=== PATIENT | male | born 1950 | race Caucasian/White ===

== ENCOUNTER 2017-04-10 12:59 | Day surgery (SDC) | payer OTHER, BC ==
[2017-04-09 12:14] VITALS: BMI 29.2
[2017-04-10] MEDS ORDERED: LIDOCAINE 1%/EPI 1:100000 (20 ML MULTI DOSE VIAL) ONE (15:14)
[2017-04-10] MEDS ORDERED: PROPOFOL 20 ML ONE ×3 (15:34)
[2017-04-10] MEDS ORDERED: MIDAZOLAM HCL 2 MG/2 ML SINGLE DOSE VIAL ONE (15:37)
[2017-04-10] MEDS ORDERED: ONDANSETRON 4 MG/2 ML VIAL IVPUSH PRN (16:14)
[2017-04-10] MEDS ORDERED: oxyCODONE HCL 5 MG TABLET PO PRN ×3 (16:14→16:45)
[2017-04-10] MEDS ORDERED: ACETAMINOPHEN 325 MG TABLET (FP) PO PRN (16:14)
[2017-04-10] MEDS ORDERED: LACTATED RINGERS SOLUTION 1,000 ML IV SCH ×2 (16:15→16:45)
[2017-04-10] MEDS ORDERED: BACITRACIN 15 GM TUBE TOPICAL OINTMENT ONE (16:15)
[2017-04-10] MEDS ORDERED: ONDANSETRON 4 MG/2 ML VIAL IVPB PRN (16:45)
--- NOTE | 2017-04-10 16:48 | OP ---
Operative Note - Note: Operative Date: 04/10/17 Pre-Operative Diagnosis: foreign body right hand Operation: foreign body removal right hand Post-Operative Diagnosis: Same as Pre-op Anesthesia: MAC Specimens Removed: wood Drains & Tubes with Location: wilfred right hand Operative Report Dictated: Yes
[2017-04-10 16:56] VITALS: BP 134/74; PULSE 78; TEMP 97.8
--- NOTE | 2017-04-10 17:50 | OP ---
DATE OF OPERATION: 04/10/2017 TITLE OF PROCEDURE: Right hand exploration of penetrating wound with removal of foreign body from thenar muscle. ATTENDING SURGEON: Ayush Quintana MD ASSISTANTS: None. ANESTHESIA: Monitored sedation with a total of 6 mL 2% lidocaine plain local field block. The patient is marked in the holding area, awake and aware of possible incisions, resulting scars. He is then brought to the operating room, placed in supine position. Position carefully checked by surgical and anesthesia teams. He is prepped and draped in standard surgical fashion. The hand is elevated. Esmarch exsanguinated. A tourniquet is inflated to 225 mm of pressure. Total tourniquet time for this case is 10 minutes. A timeout is called. Patient, procedure, site, and side are verified. The existing sutures in the wound which were used only to previously partially close the wound were removed with skin hooks. The skin edges are retracted, and the wooden foreign body is immediately identified entering into the thenar musculature. It is removed from the musculature intact. This piece corresponds with the dimensions and size of the piece identified on the sonogram. The wound is thoroughly explored with loupe magnification for any additional foreign bodies. None are identified. Additionally, the wound is copiously irrigated with a liter of normal saline. At this point, a single tacking 4-0 nylon suture is used, and a Melissa drain is placed into the wound, secured with a 4-0 nylon. Tourniquet is released. The incision is dressed with bacitracin, Xeroform, Amberly. Hand is pink and well perfused. Patient awoken from anesthesia, transferred to Recovery without complication. AYUSH QUINTANA M.D. [id number]
--- NOTE | 2017-04-12 10:48 | PATH ---
Surgical Pathology Report Patient Name: JUDITH MARIANO Med. Rec. #: [id number] /Age/Gender: 1950 (Age: 67) / M Account: [id number] Location: [facility] Taken: 04/10/2017 Received: 04/10/2017 Reported: 04/12/2017 Physicians: Ayush Montoya Specimen(s) Received RIGHT HAND FOREIGN BODY Clinical History Foreign body Final Diagnosis FOREIGN BODY, RIGHT HAND, REMOVAL: FOREIGN BODY CONSISTENT WITH WOODEN SPLINTER (GROSS ONLY). Electronically Signed Andrew Carrasco M.D. Gross Description Received fresh labeled "right hand foreign body," is a 2.4 cm in length foreign body, consistent with a wood splinter. No soft tissue is present. No sections are submitted, gross only. 04/11/201704/11/2017
== END 2017-04-10 17:30 | disposition home or self-care (01) ==
LOC: FASU 12:59
PROVIDERS: ATTEND Plastic Surgery
PROC: 0KCC0ZZ Extirpation of Matter from Right Hand Muscle, Open Approach (ICD-10-PCS; principal; 2017-04-10 16:08)
DX: M79.5 Residual foreign body in soft tissue (principal)
CPT/HCPCS: 88300-TC

== ENCOUNTER 2020-09-21 06:16 | Day surgery (SDC) | payer OTHER, BC ==
[2020-09-08 12:46] VITALS: BMI 29.2
[2020-09-21] MEDS ORDERED: TETRACAINE 0.5% OPHTH SOLN 2 ML BOTTLE ONE (07:20)
[2020-09-21] MEDS ORDERED: ERYTHROMYCIN 0.5% OPHTHALMIC OINTMENT 3.5 GM TUBE ONE (07:20)
[2020-09-21] MEDS ORDERED: POVIDONE-IODINE 5% OPHTHALMIC PREP 30 ML SOLUTION ONE (07:21)
[2020-09-21] MEDS ORDERED: LIDOCAINE 1%/EPI 1:100000 (20 ML MULTI DOSE VIAL) ONE (07:21)
[2020-09-21] MEDS ORDERED: BUPIVACAINE HCL 50 ML ONE (07:21)
[2020-09-21] MEDS ORDERED: ceFAZolin SODIUM 1 GM VIAL ONE (07:41)
[2020-09-21] MEDS ORDERED: ONDANSETRON 4 MG/2 ML VIAL ONE (07:41)
[2020-09-21] MEDS ORDERED: DEXAMETHASONE SOD PHOSPHATE 4 MG/1 ML VIAL ONE (07:41)
[2020-09-21] MEDS ORDERED: PROPOFOL 20 ML ONE ×5 (07:41→09:57)
[2020-09-21] MEDS ORDERED: MIDAZOLAM HCL 2 MG/2 ML SINGLE DOSE VIAL ONE (07:41)
[2020-09-21] MEDS ORDERED: ACETAMINOPHEN 325 MG TABLET (FP) PO PRN (10:27)
[2020-09-21] MEDS ORDERED: ONDANSETRON 4 MG/2 ML VIAL IVPUSH PRN (10:27)
[2020-09-21] MEDS ORDERED: oxyCODONE HCL 5 MG TABLET PO PRN (10:27)
[2020-09-21] MEDS ORDERED: LACTATED RINGERS SOLUTION 1,000 ML IV SCH (10:30)
[2020-09-21] MEDS ORDERED: hydrALAZINE HCL 20 MG/ML VIAL ONE (10:48)
[2020-09-21] MEDS ORDERED: hydrALAZINE HCL 20 MG/ML VIAL IVPUSH ONE (10:50)
[2020-09-21 11:46] VITALS: BP 180/98; PULSE 65; TEMP 97
== END 2020-09-21 12:35 | disposition home or self-care (01) ==
LOC: FASU 06:16
PROVIDERS: ATTEND Ophthalmology
PROC: 08SP0ZZ Reposition Left Upper Eyelid, Open Approach (ICD-10-PCS; principal; 2020-09-21 08:23)
PROC: 08SN0ZZ Reposition Right Upper Eyelid, Open Approach (ICD-10-PCS; 2020-09-21 08:23)
DX: H02.423 Myogenic ptosis of bilateral eyelids (principal); H02.831 Dermatochalasis of right upper eyelid; H02.834 Dermatochalasis of left upper eyelid
CPT/HCPCS: 82962; 94760

== ENCOUNTER 2021-01-18 06:02 | Day surgery (SDC) | payer SELFPAY ==
[2021-01-17 14:13] VITALS: BMI 29.9
[2021-01-18] MEDS ORDERED: TETRACAINE 0.5% OPHTH SOLN 2 ML BOTTLE ONE (07:22)
[2021-01-18] MEDS ORDERED: ERYTHROMYCIN 0.5% OPHTHALMIC OINTMENT 3.5 GM TUBE ONE (07:22)
[2021-01-18] MEDS ORDERED: LIDOCAINE 1%/EPI 1:100000 (20 ML MULTI DOSE VIAL) ONE (07:23)
[2021-01-18] MEDS ORDERED: POVIDONE-IODINE 5% OPHTHALMIC PREP 30 ML SOLUTION ONE (07:23)
[2021-01-18] MEDS ORDERED: ceFAZolin SODIUM 1 GM VIAL ONE ×2 (07:24→07:36)
[2021-01-18] MEDS ORDERED: SUCCINYLCHOLINE CHLORIDE 200 MG/10 ML SYRINGE ONE (07:35)
[2021-01-18] MEDS ORDERED: MIDAZOLAM HCL 2 MG/2 ML SINGLE DOSE VIAL ONE (07:35)
[2021-01-18] MEDS ORDERED: PROPOFOL 20 ML ONE ×3 (07:35)
[2021-01-18] MEDS ORDERED: KETOROLAC TROMETHAMINE 30 MG/1 ML VIAL ONE (07:36)
[2021-01-18] MEDS ORDERED: DEXAMETHASONE SOD PHOSPHATE 4 MG/1 ML VIAL ONE (07:36)
[2021-01-18] MEDS ORDERED: ONDANSETRON 4 MG/2 ML VIAL ONE (07:36)
[2021-01-18] MEDS ORDERED: ONDANSETRON 4 MG/2 ML VIAL IVPUSH PRN (08:37)
[2021-01-18] MEDS ORDERED: PROMETHAZINE HCL 25 MG/1 ML VIAL IVPUSH PRN (08:37)
[2021-01-18] MEDS ORDERED: oxyCODONE HCL 5 MG TABLET PO PRN ×2 (08:37)
[2021-01-18 09:51] VITALS: TEMP 97.8
[2021-01-18 10:43] VITALS: BP 161/62; PULSE 58
== END 2021-01-18 10:44 | disposition home or self-care (01) ==
LOC: FASU 06:02
PROVIDERS: ATTEND Ophthalmology
PROC: 08BP0ZZ Excision of Left Upper Eyelid, Open Approach (ICD-10-PCS; principal; 2021-01-18 08:00)
DX: H02.402 Unspecified ptosis of left eyelid (principal)
CPT/HCPCS: 82962; 94760